=== PATIENT | male | born 1990 | race Caucasian/White ===

== ENCOUNTER 2017-08-07 11:38 | Emergency (ER) | payer MEDICAID ==
[~2017-08-07] VITALS: Ht 177.8 cm; Wt 63.6 kg
[2017-08-07 14:00] VITALS: BP 131/74
== END 2017-08-07 16:37 | disposition home or self-care (01) ==
LOC: ED 11:38
DX: L02.31 Cutaneous abscess of buttock (principal); F15.10 Other stimulant abuse, uncomplicated; F19.10 Other psychoactive substance abuse, uncomplicated; F17.210 Nicotine dependence, cigarettes, uncomplicated
CPT/HCPCS: J2001

== ENCOUNTER 2017-08-09 13:00 | Emergency (ER) | payer MEDICAID ==
[2017-08-09 13:05] VITALS: BP 124/72
== END 2017-08-09 14:10 | disposition home or self-care (01) ==
LOC: ED 13:00
DX: Z48.01 Encounter for change or removal of surgical wound dressing (principal)